=== PATIENT | male | born 1945 | race Two or more races ===

== ENCOUNTER 2018-08-05 09:16 | Day surgery (SDC) | payer MEDICARE ==
[2018-08-05] VITALS (10 sets, daily range): BP systolic 114–155; BP diastolic 63–85
[~2018-08-05] VITALS: Ht 177.8 cm; Wt 75.9 kg
[~2018-08-05 09:16] MED LIST: ASPI81TA52 PO; AZEL137S4 BOTHNARES; DILT-29 PO
[2018-08-05] MEDS ORDERED: normal saline 1,000 ML IV SCH (09:45)
[2018-08-05] MEDS ORDERED: heparin 1,000unit/ml 10ml vial 10 ML ONE (09:45)
[2018-08-05] MEDS ORDERED: diphenhydrAMINE 25mg capsule PO PRN (09:45)
[2018-08-05] MEDS ORDERED: iohexol 350 MG/ML 50ML vial IV ONE (09:46)
[2018-08-05] MEDS ORDERED: LIDOcaine 1% (10mg/ml)w/preservative injection 20ml MDV ONE (09:46)
[2018-08-05] MEDS ORDERED: iohexol 350MG/ML 100ml bottle IV ONE (09:46)
[2018-08-05] MEDS ORDERED: fentaNYL/PF 50MCG/1 ML 2ML syringe ONE (09:47)
[2018-08-05] MEDS ORDERED: midazolam 2 mg/2 ml injection ONE ×2 (09:47→10:17)
[2018-08-05] MEDS ORDERED: proCHLORperazine 10 MG/2 ml inj ONE (09:47)
[2018-08-05] MEDS ORDERED: FLEC100T2 PO (09:55)
[2018-08-05] MEDS ORDERED: Flonase INH (09:55)
[2018-08-05] MEDS ORDERED: MONT10TA21 PO (09:55)
[2018-08-05] MEDS ORDERED: RIVA20TA PO (09:55)
[2018-08-05] MEDS ORDERED: BUSP10TA11 PO (09:55)
[2018-08-05 10:08] LABS: BASOPHILS % (AUTO) 0.6 % (0-1); EOSINOPHILS % (AUTO) 1.1 % (0-6); HEMATOCRIT 45.3 % (42.0-52.0); HEMOGLOBIN 15.2 g/dl (14.0-17.9); MEAN CORPUSCULAR HEMOGLOBIN 29.2 PG (27.0-31.0); MEAN CORPUSCULAR HGB CONC 33.6 g/dL (33.0-36.5); MEAN CORPUSCULAR VOLUME 87.1 FL (78-98); MONOCYTES # (AUTO) 0.3 X10'3 (0-0.9); MONOCYTES % (AUTO) 9.2 % (2-12); NEUTROPHILS # (AUTO) 1.6 X10'3 (1.8-7.7); NEUTROPHILS % (AUTO) 54.1 % (42-75); PLATELET COUNT 180 X10'3 (140-440); RED CELL DISTRIBUTION WIDTH 14.7 % (11.5-14.5); WHITE BLOOD COUNT 2.9 X10'3 (4.5-11.0)
[2018-08-05 10:21] LABS: ALBUMIN 3.9 G/DL (3.4-5.0); ANION GAP 7 (8-16); BLOOD UREA NITROGEN 14 MG/DL (7-18); BUN/CREATININE RATIO 16.1 (5.4-32.0); CALCIUM 8.9 MG/DL (8.5-10.1); CHLORIDE 106 MMOL/L (99-107); CREATININE 0.87 MG/DL (0.60-1.10); GLUCOSE 87 MG/DL (70-104); POTASSIUM 3.9 MMOL/L (3.5-5.1); SODIUM 141 MMOL/L (135-145); TOTAL CARBON DIOXIDE 28.3 MMOL/L (24-32); eGFR 86 ML/MIN
[2018-08-05 10:29] LABS: INR 1.1 INR
[2018-08-05 11:03] LABS: ANISOCYTOSIS 2+; PLATELET ESTIMATE NORMAL; TOTAL CELLS COUNTED 100
== END 2018-08-05 15:25 | disposition home or self-care (01) ==
LOC: SSTAY O 09:16
PROVIDERS: ATTEND Internal Medicine Cardiovascular Disease
DX: R07.2 Precordial pain (principal); R94.30 Abnormal result of cardiovascular function study, unspecified; I48.0 Paroxysmal atrial fibrillation; I45.19 Other right bundle-branch block; I10 Essential (primary) hypertension; K21.9 Gastro-esophageal reflux disease without esophagitis; Z98.890 Other specified postprocedural states; Z87.891 Personal history of nicotine dependence; Z89.022 Acquired absence of left finger(s); Z79.899 Other long term (current) drug therapy
CPT/HCPCS: 36415; 80048; 83735; 85025; 85610; 93005; 93458; 99152; A6257; J0780; J1644; J2001; J2250; J3010; J7030; Q0163; Q9967; 99153; A4620; C1760; C1769; C1894

== ENCOUNTER 2019-09-12 10:22 | Day surgery (SDC) | payer MEDICARE ==
[2019-09-07 10:40] LABS: BASOPHILS % (AUTO) 0.7 % (0-1); EOSINOPHILS # (AUTO) 0.1 X10'3 (0-0.9); LYMPHOCYTES % (AUTO) 31.8 % (21-51); MEAN CORPUSCULAR HEMOGLOBIN 29.8 PG (27.0-31.0); MEAN CORPUSCULAR HGB CONC 33.4 g/dL (33.0-36.5); MEAN CORPUSCULAR VOLUME 89.1 FL (78-98); MEAN PLATELET VOLUME 7.3 FL (7.4-10.4); MONOCYTES # (AUTO) 0.3 X10'3 (0-0.9); MONOCYTES % (AUTO) 9.4 % (2-12); NEUTROPHILS # (AUTO) 1.8 X10'3 (1.8-7.7); NEUTROPHILS % (AUTO) 56.1 % (42-75); PRE OP PLATELET COUNT 174 X10'3 (140-440); RED BLOOD COUNT 5.05 X10'6 (4.70-6.10); RED CELL DISTRIBUTION WIDTH 13.8 % (11.5-14.5)
[2019-09-07 10:52] LABS: PRE OP INR 1.1 INR; PRE OP PROTIME 11.2 SECONDS (9.0-12.0)
[2019-09-07 10:54] LABS: ALBUMIN 3.9 G/DL (3.4-5.0); ALKALINE PHOSPHATASE 59 IU/L (46-116); BLOOD UREA NITROGEN 13 MG/DL (7-18); BUN/CREATININE RATIO 12.1 (5.4-32.0); CALCIUM 8.7 MG/DL (8.5-10.1); CHLORIDE 108 MMOL/L (99-107); CREATININE 1.07 MG/DL (0.60-1.10); PRE OP ALT 25 U/L (30-65); PRE OP ANION GAP 2 (8-16); PRE OP AST 19 U/L (10-37); PRE OP BILIRUB, TOTAL 0.7 MG/DL (0.0-1.0); PRE OP GLUCOSE 88 MG/DL (70-104); PRE OP POTASSIUM 3.8 MMOL/L (3.4-5.1); PRE OP SODIUM 142 MMOL/L (135-145); TOTAL CARBON DIOXIDE 31.9 MMOL/L (24-32); TOTAL PROTEIN 7.9 G/DL (6.4-8.2); eGFR 68 ML/MIN
[2019-09-12] VITALS (18 sets, daily range): BP systolic 123–163; BP diastolic 65–102
[~2019-09-12] VITALS: Ht 177.8 cm; Wt 72.6 kg
[~2019-09-12 10:22] MED LIST changes: -ASPI81TA52 PO; -AZEL137S4 BOTHNARES; +BUPIVAcaine/PF 2.5 mg/ml (0.25%) 30ml vial ONE; +BUSP10TA11 PO; -DILT-29 PO; +FLEC100T2 PO; +FLUT16SP2 BOTHNARES; +LIDOcaine 1% 30ml preserv. free vial ONE; +MONT10TA21 PO; +RIVA20TA PO; +ceFAZolin 2gm in dextrose, iso 50 ML IV ONE; +famotidine 20mg tablet PO ONE; +ringers solution, lacted 1,000 ML IV SCH
[2019-09-12] MEDS ORDERED: sevoflurane 250ml liquid IH ONE (14:43)
[2019-09-12] MEDS ORDERED: fentaNYL/PF 50MCG/1 ML 2ML syringe ONE (14:50)
[2019-09-12] MEDS ORDERED: rocuronium 10mg/ml inj IV ONE (15:02)
[2019-09-12] MEDS ORDERED: propofol inj 20 ML IV ONE (15:02)
[2019-09-12] MEDS ORDERED: LIDOcaine 2% (20mg/ml) 5ml vial ONE (15:02)
[2019-09-12] MEDS ORDERED: glycopyrrolate 0.2mg/ml inj ONE (15:46)
[2019-09-12] MEDS ORDERED: neostigmine methylsulfate 1 MG/ML 10ml vial ONE (15:46)
[2019-09-12] MEDS ORDERED: dexamethasone sod phosphate 4mg/ml inj. ONE (15:46)
[2019-09-12] MEDS ORDERED: ondansetron/PF 4mg/2ml inj ONE (15:46)
[2019-09-12] MEDS ORDERED: ringers solution, lacted 1,000 ML IV SCH (16:05)
[2019-09-12] MEDS ORDERED: ondansetron/PF 4mg/2ml inj IV PRN (16:05)
[2019-09-12] MEDS ORDERED: morphine 2 MG/ML inj. syringe IV PRN (16:05)
[2019-09-12] MEDS ORDERED: HYDROmorphone inj. 0.5 MG/0.5 ML DISP.SYRIN IV PRN ×2 (16:05)
--- NOTE | 2019-09-12 16:15 | NUR ---
Received from OR via BED, accompanied by Anesthesiologist DR ADRIAN-- and report given by Anesthesiolgist. PATIENT A&OX4, DENIES PAIN, V/S WNL, NEUROVASCULAR CHECKS INTACT, 20G PIV LUE, SCD ON, BANDAIDS TO ABDOMEN CDI
[2019-09-12] MEDS ORDERED: HYDROcodone/acetaminophen 5mg/325mg tablet PO PRN (16:20)
--- NOTE | 2019-09-12 19:14 | NUR ---
PATIENT UNABLE TO VOID, BLADDER SCAN 255CC, PATIENT ENCOURAGED TO DRINK WATER AND AMBULATE
--- NOTE | 2019-09-12 20:25 | NUR ---
PATIENT STRAIGHT CATH FOR 450CC URINE WITH NO COMPLICATIONS OBSERVED AND IV D/C AND SCD OFF. I HAVE REVIEWED D/C INSTRUCTIONS WITH PATIENT AND HE HAS VERBALIZED UNDERSTANDING. V/S STABLE. PATIENT DENIES PAIN. HE WAS D/C HOME WITH SCRIPT FOR PAIN AND ALL BELONGINGS AND HIS GAVE TRANSPORT
== END 2019-09-12 20:25 | disposition home or self-care (01) ==
LOC: PAS 10:22
PROVIDERS: ATTEND Surgery
DX: K40.90 Unilateral inguinal hernia, without obstruction or gangrene, not specified as recurrent (principal); I48.91 Unspecified atrial fibrillation; Z11.59 Encounter for screening for other viral diseases; Z79.899 Other long term (current) drug therapy; Z87.891 Personal history of nicotine dependence; Z83.3 Family history of diabetes mellitus
CPT/HCPCS: 36415; 49650; 80053; 82948; 85025; 85610; 85730; 93005; C1781; J1100; J2001; J2405; J2704; J2710; J3010; J3490; J7120; U0003; A4215; A4338; A4618